=== PATIENT | female | born 1980 ===

== ENCOUNTER 2018-05-03 11:23 | Inpatient (IN) | payer OTHER ==
[~2018-05-03] VITALS: Ht 162.6 cm; Wt 56.7 kg
== END 2018-05-05 11:32 | disposition home or self-care (01) | DRG 781 ==
LOC: LDR 11:23 → OB/GYN 11:23
PROC: 4A1HXCZ Monitoring of Products of Conception, Cardiac Rate, External Approach (ICD-10-PCS; principal; 2018-05-03)
DX: O21.1 Hyperemesis gravidarum with metabolic disturbance (principal)

== ENCOUNTER 2018-12-12 12:30 | Inpatient (IN) | payer OTHER ==
[~2018-12-12] VITALS: Ht 162.6 cm; Wt 3.6 kg
[2018-12-23] MEDS ORDERED: OXYC1TAB9 PO (08:51)
[2018-12-23] MEDS ORDERED: KETO10TA2 PO (08:51)
== END 2018-12-23 12:14 | disposition home or self-care (01) | DRG 785 ==
LOC: OB/GYN 12-20 08:45 → O/R 12-20 11:39 → OB/GYN 12-20 12:30 → SURG-SUITE 12-20 14:39
PROVIDERS: ADMIT Obstetrics & Gynecology Maternal & Fetal Medicine
PROC: 0UL70ZZ Occlusion of Bilateral Fallopian Tubes, Open Approach (ICD-10-PCS; 2018-12-20)
PROC: 4A0HXFZ Measurement of Products of Conception, Cardiac Rhythm, External Approach (ICD-10-PCS; 2018-12-20)
PROC: 10D00Z1 Extraction of Products of Conception, Low, Open Approach (ICD-10-PCS; principal; 2018-12-20 08:45)
DX: O82 Encounter for cesarean delivery without indication (principal); Z3A.39 39 weeks gestation of pregnancy; Z37.0 Single live birth; Z30.2 Encounter for sterilization